=== PATIENT | male | born 1950 | race Caucasian/White ===

== ENCOUNTER 2020-06-30 06:43 | Emergency (ER) | payer OTHER ==
[~2020-06-30] VITALS: Ht 172.7 cm; Wt 100.0 kg
[2020-06-30 06:43] VITALS: BP 145/70
--- NOTE | 2020-07-01 08:12 | ECGEPIP ---
[facility] - ED Test Date: 2020-06-30 Pat Name: DIANNA FORBES Department: Room: - Gender: Male Product Development Consultant: KOBY : 1950 Requested By: BOOM Sauer Order Number: [id number] Reading MD: Jolene Phelps Measurements Intervals [place] Rate: 71 P: 56 MN: 194 QRS: -12 QRSD: 106 T: 55 QT: 414 QTc: 449 Interpretive Statements Normal sinus rhythm NSTTW abnormalities No prior Electronically Signed on 07-01-2020 8:11:52 EDT by Jolene Phelps
== END 2020-06-30 10:59 | disposition left against medical advice (07) ==
LOC: M ED 06:43
DX: Z53.21 Procedure and treatment not carried out due to patient leaving prior to being seen by health care provider (principal)